=== PATIENT | female | born 1985 | race Caucasian/White ===

== ENCOUNTER 2018-05-23 00:41 | Emergency (ER) | payer BC ==
[~2018-05-23] VITALS: Ht 154.9 cm; Wt 54.5 kg
[2018-05-23 00:44] VITALS: Ht 154.9 cm; Wt 54.5 kg
[2018-05-23] MEDS ORDERED: CLEOCIN HCL300 MG PO (00:59)
[2018-05-23 01:17] VITALS: BP 132/92
== END 2018-05-23 01:18 | disposition home or self-care (01) ==
LOC: D.ER 00:41
DX: L08.9 Local infection of the skin and subcutaneous tissue, unspecified (principal); L03.115 Cellulitis of right lower limb; F17.200 Nicotine dependence, unspecified, uncomplicated

== ENCOUNTER 2018-06-17 12:08 | Emergency (ER) | payer MEDICAID ==
[~2018-06-17] VITALS: Ht 154.9 cm; Wt 50.9 kg
[~2018-06-17 12:08] MED LIST: CLEOCIN HCL300 MG PO
[2018-06-17 12:13] VITALS: Ht 154.9 cm; Wt 50.9 kg
[2018-06-17 12:35] LABS: APPEARANCE CLEAR (CLEAR); BILIRUBIN NEGATIVE (NEGATIVE); COLOR YELLOW (YELLOW); GLUCOSE NEGATIVE (NEGATIVE); KETONE NEGATIVE (NEGATIVE); NITRITE NEGATIVE (NEGATIVE); PROTEIN NEGATIVE (NEGATIVE); SPECIFIC GRAVITY 1.005 (1.005-1.020); UROBILINOGEN NORMAL (NORMAL)
[2018-06-17 13:40] LABS: BASOPHILS 0.3 % (0-2); EOSINOPHILS 4.2 % (0-7); HEMATOCRIT 41.7 % (36.0-48.0); IMMATURE GRANULOCYTES 0.2 % (0-5); LYMPHOCYTES 31.8 % (15-50); MCHC 33.6 g/dL (31.0-37.0); MCV 92.5 fL (80.0-100.0); MEAN PLATELET VOLUME 10.5 fL (7.4-10.4); MONOCYTES 5.3 % (2-11); NEUTROPHILS 58.2 % (40-80); PLATELET COUNT 359 10x3/uL (130-400); RBC 4.51 10x6/uL (4.00-5.40); RDW 13.7 % (11.5-14.5); WBC 13.1 10x3/uL (4.8-10.8)
[2018-06-17 13:55] LABS: ALBUMIN 3.5 g/dL (3.4-5.0); ALKALINE PHOSPHATASE 90 U/L (46-116); ALT (SGPT) 26 U/L (10-68); BILIRUBIN - TOTAL 0.19 mg/dL (0.2-1.3); CALC OSMOLALITY 276 mosm/kg (275-300); CALCIUM 8.9 mg/dL (8.5-10.1); CARBON DIOXIDE 28.8 mmol/L (21.0-32.0); CHLORIDE - SERUM 102 mmol/L (98-107); CREATININE - SERUM 0.9 mg/dL (0.6-1.3); GLUCOSE 116 mg/dL (74-106); PROTEIN - SERUM 7.5 g/dL (6.4-8.2); SODIUM 138 mmol/L (136-145); UREA NITROGEN 12 mg/dL (7-18); eGFR NON AFRICAN AMERICAN 78 mL/min (90-120)
[2018-06-17 14:04] LABS: HCG SERUM NEGATIVE (NEGATIVE)
[2018-06-17] MEDS ORDERED: VOLTAREN75 MG PO (15:10)
[2018-06-17] MEDS ORDERED: VIBRAMYCIN 100100 MG PO (15:10)
[2018-06-17 15:20] VITALS: BP 132/89
== END 2018-06-17 15:21 | disposition home or self-care (01) ==
LOC: D.ER 12:08
PROVIDERS: Family Medicine
DX: N89.8 Other specified noninflammatory disorders of vagina (principal); R10.2 Pelvic and perineal pain